=== PATIENT | male | born 1990 | race American Indian/Alaskan Native ===

== ENCOUNTER 2021-04-02 21:39 | Emergency (ER) | payer SELFPAY ==
[2021-04-03] MEDS ORDERED: HYDROcodone/ACETAMINOPHEN 5-325 MG TAB PO ONE (02:24)
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
[2021-04-03 03:55] VITALS: BP 125/71
== END 2021-04-03 05:05 | disposition home or self-care (01) ==
LOC: ED 21:39
DX: S20.219A Contusion of unspecified front wall of thorax, initial encounter (principal); J40 Bronchitis, not specified as acute or chronic; Z79.899 Other long term (current) drug therapy; Y04.8XXA Assault by other bodily force, initial encounter; Y93.89 Activity, other specified; Y92.099 Unspecified place in other non-institutional residence as the place of occurrence of the external cause; Y99.8 Other external cause status
CPT/HCPCS: 70486

== ENCOUNTER 2022-02-18 09:21 | Emergency (ER) | payer SELFPAY ==
[2022-02-18 10:14] VITALS: BP 145/75
[2022-02-18] MEDS ORDERED: dexAMETHasone 20 MG/5 ML VIAL IM ONE (11:49)
--- NOTE | 2022-02-18 11:54 | Emergency Department Report ---
ED Asthma HPI - General Chief Complaint: Dyspnea/Respdistress Stated Complaint: SOB Time Seen by Provider: 02/18/22 11:48 Source: patient Mode of arrival: Ambulatory Limitations: No Limitations - History of Present Illness Initial Comments: 31-year-old morbid obese -[place] male presents to the emergency room complaining of shortness of breath times a couple of days. Patient reports he has a history of asthma but has not been using his inhaler or treatments. Patient denies any nasal congestion no runny nose no headache no cough. States that he works outside with [employer]. Patient states that he has the nebulizer treatments at home but has not used it. MD Complaint: shortness of breath Onset/Timin -: days(s) Severity: mild Context: allergen exposure Associated Symptoms: none - Related Data Home Medications Medication Instructions Recorded Confirmed Last Taken Albuterol Sulfate [Albuterol 0.63%] 10/20/13 10/20/13 Unknown Previous Rx's Medication Instructions Recorded Last Taken Type raNITIdine HCL [Ranitidine 150mg 150 mg PO Q12H #60 cap 10/20/13 Unknown Rx Cap] traMADoL [Ultram 50 MG tab] 50 mg PO Q6HR PRN #20 tablet 10/20/13 Unknown Rx Amoxicillin/K Clav Tab [Augmentin 1 tab PO Q12HR #20 tab 09/15/16 Unknown Rx 875 mg] Ipratropium/Albuterol Sulfate 1 ampul IH Q4HR #1 box 09/15/16 Unknown Rx [Duoneb 0.5 mg-3 mg/3 ml Soln] methylPREDNISolone [Medrol Dose 4 mg PO QAM #21 pack 09/15/16 Unknown Rx Dewayne] HYDROcodone/APAP 5-325 [[place] 1 each PO Q6HR PRN #12 tablet 10/03/18 Unknown Rx 5/325] Ibuprofen [Motrin] 800 mg PO Q8HR PRN #30 tablet 10/03/18 Unknown Rx predniSONE [Deltasone] 20 mg PO DAILY #15 tablet 10/03/18 Unknown Rx Albuterol Mdi (or & Nicu Only) 2 puff IH QID PRN #1 inhalation 02/18/22 Unknown Rx [ProAir HFA Inhaler] methylPREDNISolone [Medrol 4MG 4 mg PO DAILY #21 tab 02/18/22 Unknown Rx DOSEPAK (21 tabs)] Allergies Allergy/AdvReac Type Severity Reaction Status Date / Time No Known Allergies Allergy Verified 10/20/13 07:43 ED Review of Systems ROS: Stated complaint: SOB Other details as noted in HPI Comment: All other systems reviewed and negative ED Past Medical Hx - Past Medical History Hx Asthma: Yes - Social History Smoking Status: Never Smoker Substance Use Type: None - Medications Home Medications: Home Medications Medication Instructions Recorded Confirmed Last Taken Type Albuterol Sulfate [Albuterol 0.63%] 10/20/13 10/20/13 Unknown History raNITIdine HCL [Ranitidine 150mg 150 mg PO Q12H #60 cap 10/20/13 Unknown Rx Cap] traMADoL [Ultram 50 MG tab] 50 mg PO Q6HR PRN #20 tablet 10/20/13 Unknown Rx Amoxicillin/K Clav Tab [Augmentin 1 tab PO Q12HR #20 tab 09/15/16 Unknown Rx 875 mg] Ipratropium/Albuterol Sulfate 1 ampul IH Q4HR #1 box 09/15/16 Unknown Rx [Duoneb 0.5 mg-3 mg/3 ml Soln] methylPREDNISolone [Medrol Dose 4 mg PO QAM #21 pack 09/15/16 Unknown Rx Dewayne] HYDROcodone/APAP 5-325 [[place] 1 each PO Q6HR PRN #12 tablet 10/03/18 Unknown Rx 5/325] Ibuprofen [Motrin] 800 mg PO Q8HR PRN #30 tablet 10/03/18 Unknown Rx predniSONE [Deltasone] 20 mg PO DAILY #15 tablet 10/03/18 Unknown Rx Albuterol Mdi (or & Nicu Only) 2 puff IH QID PRN #1 inhalation 02/18/22 Unknown Rx [ProAir HFA Inhaler] methylPREDNISolone [Medrol 4MG 4 mg PO DAILY #21 tab 02/18/22 Unknown Rx DOSEPAK (21 tabs)] ED Physical Exam - General Limitations: No Limitations General appearance: alert - Head Head exam: Present: atraumatic, normocephalic - Eye Eye exam: Present: normal appearance, PERRL, EOMI - ENT ENT exam: Present: mucous membranes moist, normal external ear exam - Neck Neck exam: Present: normal inspection, full ROM - Respiratory Respiratory exam: Present: normal lung sounds bilaterally - Cardiovascular Cardiovascular Exam: Present: regular rate, normal rhythm. Absent: systolic murmur, diastolic murmur, rubs, gallop - GI/Abdominal GI/Abdominal exam: Present: soft, normal bowel sounds - Extremities Exam Extremities exam: Present: normal inspection - Back Exam Back exam: Present: normal inspection - Neurological Exam Neurological exam: Present: alert, oriented X3 - Psychiatric Psychiatric exam: Present: normal affect, normal mood - Skin Skin exam: Present: warm, dry, intact, normal color. Absent: rash ED Course Vital Signs 02/18/22 10:11 Temperature 98.8 F Pulse Rate 63 Respiratory 18 Rate Blood Pressure 145/75 [Right] O2 Sat by Pulse 99 Oximetry ED Medical Decision Making - Medical Decision Making 31-year-old morbid obese -[place] male presents to the emergency room complaining of shortness of breath times a couple of days. Patient reports he has a history of asthma but has not been using his inhaler or treatments. Patient denies any nasal congestion no runny nose no headache no cough. States that he works outside with [employer]. Patient states that he has the nebulizer treatments at home but has not used it. Patient to be given dexamethasone 10 mg IM discharged home on a prednisone pack and albuterol inhaler. Critical care attestation.: If time is entered above; I have spent that time in minutes in the direct care of this critically ill patient, excluding procedure time. ED Disposition Clinical Impression: Shortness of breath, Morbid obesity, Asthma Disposition: 01 HOME / SELF CARE / HOMELESS Is pt being admited?: No Does the pt Need Aspirin: No Condition: Stable Instructions: Asthma (ED), Asthma, Adult, Oeca-tr-Ouks Additional Instructions: Complete prednisone pack use inhaler and follow-up with a primary care provider Prescriptions: methylPREDNISolone [Medrol 4MG DOSEPAK (21 tabs)] 4 mg PO DAILY #21 tab Albuterol Mdi (or & Nicu Only) [ProAir HFA Inhaler] 2 puff IH QID PRN #1 inhalation PRN Reason: Shortness Of Breath Referrals: [facility] [Provider Group] - 3-5 Days Time of Disposition: 11:56
== END 2022-02-18 12:27 | disposition home or self-care (01) ==
LOC: ED 09:21
DX: J45.909 Unspecified asthma, uncomplicated (principal); E66.01 Morbid (severe) obesity due to excess calories; Z68.36 Body mass index [BMI] 36.0-36.9, adult; Z79.899 Other long term (current) drug therapy
CPT/HCPCS: 96372; 99282; J1100